=== PATIENT | male | born 1980 | race Caucasian/White ===

== ENCOUNTER 2023-01-27 21:28 | Emergency (ER) | payer OTHER ==
[2023-01-27 21:58] VITALS: BP 121/81; PULSE 71; RESP 16; TEMP 98.1; BMI 23.1
[2023-01-27] MEDS ORDERED: valACYclovir HCL 1000 MG TABLET PO ONE (23:24)
[2023-01-27] MEDS ORDERED: valACYclovir HCL 500 MG TABLET (FP) ONE (23:28)
== END 2023-01-27 23:30 | disposition home or self-care (01) ==
LOC: JER 21:28
DX: R21 Rash and other nonspecific skin eruption (principal); B02.9 Zoster without complications; M54.9 Dorsalgia, unspecified
CPT/HCPCS: 99283-25